=== PATIENT | male | born 1965 | race African-American/Black ===

== ENCOUNTER 2018-11-14 08:54 | Emergency (ER) | payer OTHER ==
[2018-11-14] MEDS ORDERED: Ondansetron ODT TAB* 4 MG PO ONE (09:23)
[2018-11-14 09:28] VITALS: BP 140/97
--- NOTE | 2018-11-14 10:47 | UC ---
General HPI - HPI Summary HPI Summary: Pt presents with c/o sudden onset of difficulty breathing, nausea, "tingling in head" and thoughts that he was "dying". Pt was driving at time and states that he pulled over and called 911. Ambulance at scene. Prior to ambulance arrival , pt vomited and instantly had relief from all symptoms. Pt states that he is experiencing significant distress in his personal life right now. Pt has work colleague present at time of exam. - History of Current Complaint Chief Complaint: UCGI Stated Complaint: NAUSEA Time Seen by Provider: 11/14/18 10:29 Hx Obtained From: Patient Onset/Duration: Sudden Onset, Lasting Minutes, Resolved Timing: Constant Onset Severity: Severe Current Severity: None Pain Intensity: 0 Associated Signs & Symptoms: Positive: Chest Pain, Dizziness, Vomiting - Allergy/Home Medications Allergies/Adverse Reactions: Allergies Allergy/AdvReac Type Severity Reaction Status Date / Time No Known Allergies Allergy Verified 11/14/18 09:14 Home Medications: Home Medications Atorvastatin* [Lipitor 10 MG*] 10 mg PO DAILY 11/14/18 [History Confirmed ] Bp Med, Name 1 tab PO DAILY 11/14/18 [History] PMH/Surg Hx/FS Hx/Imm Hx Previously Healthy: Yes Cardiovascular History: Cardiac Disease, Hypertension - Surgical History Surgical History: Yes Surgery Procedure, Year, and Place: RIGHT LOWER LEG FX REPAIR WITH HARDWEAR - Family History Known Family History: Positive: Cardiac Disease - Social History Occupation: Employed Full-time Alcohol Use: Occasionally Substance Use Type: None Smoking Status (MU): Former Smoker Type: Cigarettes Have You Smoked in the Last Year: No When Did the Patient Quit Smoking/Using Tobacco: 2012 Review of Systems All Other Systems Reviewed And Are Negative: Yes Constitutional: Positive: Negative Skin: Positive: Negative Eyes: Positive: Negative ENT: Positive: Negative Respiratory: Positive: Negative, Cough Cardiovascular: Positive: Chest Pain Gastrointestinal: Positive: Negative Genitourinary: Positive: Negative Motor: Positive: Negative Neurovascular: Positive: Negative Musculoskeletal: Positive: Negative Neurological: Positive: Weakness Psychological: Positive: Anxious Is Patient Immunocompromised?: No Physical Exam Triage Information Reviewed: Yes Appearance: Well-Appearing Vital Signs: Initial Vital Signs Temp 97.9 F 11/14/18 09:18 Pulse 96 11/14/18 09:18 Resp 18 11/14/18 09:18 BP 140/97 02/13/19 09:18 Pulse Ox 99 11/14/18 09:18 Vital Signs Reviewed: Yes Eye Exam: Normal ENT Exam: Normal Dental Exam: Normal Neck exam: Normal Respiratory Exam: Normal Cardiovascular Exam: Normal Musculoskeletal Exam: Normal Neurological Exam: Normal Psychological Exam: Normal Skin Exam: Normal Course/Dx - Differential Dx - Multi-Symptom Differential Diagnoses: Other - anxiety - Diagnoses Provider Diagnosis: Panic attack, Nausea & vomiting Discharge - Sign-Out/Discharge Documenting (check all that apply): Patient Departure All imaging exams completed and their final reports reviewed: No Studies - Discharge Plan Condition: Stable Disposition: HOME Prescriptions: LORazepam TAB(*) [Ativan 0.5 MG TAB (*)] 0.5 mg PO Q6H PRN #20 tab MDD 4 PRN Reason: Anxiety Ondansetron HCl [Zofran] 8 mg PO Q8H PRN #15 tablet PRN Reason: Nausea Patient Education Materials: Acute Nausea and Vomiting (ED), Anxiety (ED) [facility]errals: [facility] [Outside] - If Needed No Primary Care Phys,NOPCP [Primary Care Provider] - - Billing Disposition and Condition Condition: STABLE Disposition: Home
== END 2018-11-14 10:58 | disposition home or self-care (01) ==
LOC: UCCORT 08:54
DX: R11.2 Nausea with vomiting, unspecified (principal); F41.0 Panic disorder [episodic paroxysmal anxiety]; R42 Dizziness and giddiness; R07.9 Chest pain, unspecified; I10 Essential (primary) hypertension; Z87.891 Personal history of nicotine dependence
CPT/HCPCS: 99202; A9270-GY; G0463

== ENCOUNTER 2018-11-21 18:10 | Emergency (ER) | payer OTHER ==
--- NOTE | 2018-11-21 18:51 | ED ---
Psychiatric Complaint - HPI Summary HPI Summary: This pt is a 53 y/o male presenting to [facility] via police office on a 9.41 for a mental health evaluation. Pt was in the ED earlier brought in by coworker for auditory and visual hallucinations but was discharged by mental health with anxiety. Pt states today he heard his neighbors upstairs talking about killing him. He notes when he was 17 years old he saw his brother who was 16 years old get murdered and "this thought always crashes" his mind. The police came to check on the neighbors, but neighbors did not open the door. He notes the police told him they can't do anything unless it is a direct threat. Pt reports feeling very afraid now. Denies SI, HI, auditory or visual hallucinations. Pt works in at [employer]. PMHx: anxiety. He admits to socially using alcohol and street drugs. Pt is a former smoker. - History Of Current Complaint Chief Complaint: EDMentalHealth Time Seen by Provider: 11/21/18 18:19 Hx Obtained From: Patient Severity Currently: None Character: Fearful Aggravating Factor(s): Nothing Alleviating Factor(s): Nothing Associated Signs And Symptoms: Positive: Negative Related History: Positive For: Prior Psychiatric Issues Has Suicidal: Denies: Thoughts, With A Plan Has Homicidal: Denies: Thoughts, With A Plan Recent Stressor(s): overheard neighbors threatening to kill him - Allergies/Home Medications Allergies/Adverse Reactions: Allergies Allergy/AdvReac Type Severity Reaction Status Date / Time No Known Allergies Allergy Verified 11/14/18 09:14 PMH/Surg Hx/FS Hx/Imm Hx Cardiovascular History: Reports: Hx Hypertension Psychiatric History: Reports: Hx Anxiety - with panic attacks Denies: Hx Eating Disorder, Hx of Violent Episodes Against Others - Surgical History Surgery Procedure, Year, and Place: RIGHT LOWER LEG FX REPAIR WITH HARDWEAR Infectious Disease History: No Infectious Disease History: Denies: Traveled Outside the [place] in Last 30 Days - Family History Known Family History: Positive: Cardiac Disease - Social History Alcohol Use: Occasionally Hx Substance Use: Yes - socially Hx Tobacco Use: Yes Smoking Status (MU): Former Smoker Type: Cigarettes Have You Smoked in the Last Year: No Review of Systems Negative: Fever, Chills Cardiovascular: Negative Respiratory: Negative Gastrointestinal: Negative Psychological: Other - POS: afraid Negative: Other - NEG: SI, HI, auditory or visual hallucinations All Other Systems Reviewed And Are Negative: Yes Physical Exam - Summary Physical Exam Summary: Appearance: Well-appearing, Well-nourished, lying in bed comfortable Skin: Warm, dry, no obvious rash Eyes: sclera anicteric, no conjunctival pallor ENT: mucous membranes moist Neck: deferred Respiratory: No signs of respiratory distress Cardiovascular: Appears well perfused, pulses are nml Abdomen: deferred Musculoskeletal: Moving all 4 extremities without obvious discomfort Neurological: Awake and alert, mentation is normal, speech is fluent and appropriate Psychiatric: affect is normal, does not appear anxious or depressed Triage Information Reviewed: Yes Vital Signs On Initial Exam: Initial Vitals Temp Pulse Resp BP Pulse Ox 97.6 F 108 18 150/100 95 11/21/18 18:14 11/21/18 18:14 11/21/18 18:14 11/21/18 18:14 11/21/18 18:14 Vital Signs Reviewed: Yes Diagnostics - Vital Signs Vital Signs Temp Pulse Resp BP Pulse Ox 11/21/18 18:14 97.6 F 108 18 150/100 95 - Laboratory Result Diagrams: 11/22/18 06:32 11/22/18 06:32 Lab Statement: Any lab studies that have been ordered have been reviewed, and results considered in the medical decision making process. Re-Evaluation - Re-Evaluation First Eval Re-Evaluation Time: 18:51 Comment: Pt is medically cleared. Course/Dx - Course Assessment/Plan: Pt is a 53 y/o male who presents on a 9.41 for a mental health evaluation. Pt was in the ED earlier brought in by coworker for auditory and visual hallucinations but was discharged by mental health with dx anxiety. Pt states today he heard his neighbors upstairs talking about killing him. Pt was medically cleared. Pt is waiting for a mental health evaluation. He will be signed out to Dr. Mcnally at shift change pending MHE. - Differential Dx/Clinical Impression Provider Diagnosis: Psychotic disorder Discharge - Sign-Out/Discharge Documenting (check all that apply): Sign-Out Patient Signing out patient TO: Berenice Mcnally - pending MHE and dispo Patient Received Moderate/Deep Sedation with Procedure: No - Discharge Plan Condition: Stable Referrals: [facility] [Outside] [facility] [place] [facility] [Outside] - Billing Disposition and Condition Condition: STABLE - Attestation Statements Document Initiated by Julitaibandria: Yes Documenting Scribe: Marcie Cartagena Provider For Whom Bruce is Documenting (Include Credential): Neil Javed MD Scribe Attestation: IMarcie, scribed for Neil Javed MD on 11/22/18 at 1304. Scribe Documentation Reviewed: Yes Provider Attestation: The documentation as recorded by the Marcie craven accurately reflects the service I personally performed and the decisions made by me, Neil Javed MD Status of Scribe Document: Viewed
--- NOTE | 2018-11-21 22:48 | ED ---
Progress - Progress Note Progress Note: This patient was signed out to Dr. Mcnally from Dr. Javed at 22:00 11/21/18 pending evaluation. EKG at 23:46 shows NSR at 96 bpm, Normal axis. Normal interval. No ischemic changes. Per warehouse team member, Dr. Dickerson has decided that the patient will be transferred with a diagnosis of psychotic disorder. The patient is agreeable with this plan. Bloodwork obtained and is WNL. This patient will be signed out to Dr. Hickman upon shift change at 07:00 11/22/18 pending transfer. - EKG/XRAY/CT EKG: NSR Comments: NSR at 96 bpm,Normal axis. Normal interval. No ischemic changes - Consult/PCP Time Called: 18:10 Re-Evaluation - Re-Evaluation First Eval Re-Evaluation Time: 18:51 Comment: Pt is medically cleared. Course/Dx - Course Course Of Treatment: This patient was signed out to Dr. Mcnally from Dr. Javed at 22:00 11/21/18 pending evaluation. EKG at 23:46 shows NSR at 96 bpm, Normal axis. Normal interval. No ischemic changes. Per warehouse team member, Dr. Dickerson has decided that the patient will be transferred with a diagnosis of psychotic disorder. Bloodwork obtained and is WNL. The patient is agreeable with this plan. This patient will be signed out to Dr. Hickman upon shift change at 07:00 11/22/18 pending transfer. - Diagnoses Provider Diagnoses: Psychotic disorder - Provider Notifications Discussed Care Of Patient With: Yossi Dickerson Time Discussed With Above Provider: 22:47 Instructed by Provider To: Other - Per warehouse team member, Dr. Dickerson has decided that the patient will be transferred with a diagnosis of psychotic disorder. Discharge - Sign-Out/Discharge Documenting (check all that apply): Patient Departure - transfer, Sign-Out Patient, Receiving Sign-Out Signing out patient TO: Leny Hickman - pending transfer Receiving patient FROM: Neil Javed Patient Received Moderate/Deep Sedation with Procedure: No - Discharge Plan Condition: Stable Disposition: HOME Patient Education Materials: Fever in Adults (ED) Forms: *Work Release Referrals: [facility] [Outside] - 2 [facility] [Outside] - If Needed - Billing Disposition and Condition Condition: STABLE Disposition: Home - Attestation Statements Document Initiated by Scribe: Yes Documenting Scribe: Sachin Araiza Provider For Whom Scribe is Documenting (Include Credential): Berenice Mcnally MD Scribe Attestation: I, Sachin Araiza, scribed for Berenice Mcnally MD on 12/02/18 at 2011. Scribe Documentation Reviewed: Yes Provider Attestation: The documentation as recorded by the Sachin craven accurately reflects the service I personally performed and the decisions made by me, Berenice Mcnally MD Status of Scribe Document: Viewed
[2018-11-22 06:40] LABS: ABS Basophils 0 10^3/ul (0-0.2); ABS Eosinophils 0.2 10^3/ul (0-0.6); ABS Lymphocytes 0.6 10^3/ul (1.0-4.8); ABS Monocytes 0.5 10^3/ul (0-0.8); ABS Neutrophils 2.6 10^3/ul (1.5-7.7); ABS Nucleated RBC 0 10^3/ul; Hematocrit 43 % (42-52); Hemoglobin 14.3 g/dl (14.0-18.0); Lymphocyte % 14.6 %; Mean Corpuscular HGB Conc 34 g/dl (31-36); Mean Corpuscular Hemoglobin 28 pg (27-31); Mean Corpuscular Volume 83 fL (80-94); Mean Platelet Volume 8.7 fL (7.4-10.4); Nucleated Red Blood Cells % 0; Platelet Count 192 10^3/ul (150-450); Red Blood Count 5.13 10^6/ul (4.00-5.40); Red Cell Distribution Width 14 % (10.5-15); White Blood Count 3.8 10^3/ul (3.5-10.8)
[2018-11-22 06:56] LABS: ALT 30 U/L (7-52); AST 34 U/L (13-39); Albumin 4.2 g/dL (3.2-5.2); Albumin/Globulin Ratio 1.4 (1-3); Alkaline Phosphatase 81 U/L (34-104); Anion Gap 7 mmol/L (2-11); BUN/Creatinine Ratio 8.7 (8-20); Blood Urea Nitrogen 8 mg/dL (6-24); CO2 Carbon Dioxide 28 mmol/L (22-32); Calcium 9.6 mg/dL (8.6-10.3); Chloride 101 mmol/L (101-111); EGFR African American 103.7 (>60); EGFR Non-African American 85.7 (>60); Glucose 98 mg/dL (70-100); Potassium 3.2 mmol/L (3.5-5.0); Sodium 136 mmol/L (135-145); Total Protein 7.2 g/dL (6.4-8.9)
[2018-11-22 07:29] LABS: Acetaminophen < 15 mcg/mL; Alcohol < 10 mg/dL (<10); Salicylate < 2.50 mg/dL (<30)
[2018-11-22 07:43] LABS: TSH (Thyroid Stimulating Horm) 0.45 mcIU/mL (0.34-5.60)
[2018-11-22] MEDS ORDERED: amLODIPine TAB* 5 MG PO ONE (09:15)
[2018-11-22] MEDS ORDERED: Atorvastatin* 10 MG TAB PO ONE (09:15)
--- NOTE | 2018-11-22 09:20 | PN ---
ED Flex Patient Progress Note Date of Service: 11/21/18 Subjective: This is a 53 year-old M who is pending admission to [facility] / transfer to another psychiatric facility / discharge to home / or being observed secondary to hallucinations. Pt. examined around 0910. He speaking with counselors in hallway. Pt. reports he slept very well last night and states he is feeling great this morning and that he could go home. Objective: Vitals: Most recent vital signs documented below. General NAD, Alert and oriented x3. Laboratory: Current laboratory results documented below. Assessment: Hallucinations Plan: Pending psychiatric transfer to [place]. Morning medications ordered. Vital Signs Temp Pulse Resp BP Pulse Ox 97.6 F 108 18 150/100 95 11/21/18 18:14 11/21/18 18:14 11/21/18 18:14 11/21/18 18:14 11/21/18 18:14 Lab Results - Entire Visit 11/22/18 11/22/18 06:32 06:32 WBC 3.8 RBC 5.13 Hgb 14.3 Hct 43 MCV 83 MCH 28 MCHC 34 RDW 14 Plt Count 192 MPV 8.7 Neut % (Auto) 68.2 Lymph % (Auto) 14.6 [place] % (Auto) 12.7 Eos % (Auto) 4.0 Baso % (Auto) 0.5 Absolute Neuts (auto) 2.6 Absolute Lymphs (auto) 0.6 L Absolute Monos (auto) 0.5 Absolute Eos (auto) 0.2 Absolute Basos (auto) 0 Absolute Nucleated RBC 0 Nucleated RBC % 0 Sodium 136 Potassium 3.2 L Chloride 101 Carbon Dioxide 28 Anion Gap 7 BUN 8 Creatinine 0.92 Est GFR ( Amer) 103.7 Est GFR (Non-Af Amer) 85.7 BUN/Creatinine Ratio 8.7 Glucose 98 Calcium 9.6 Total Bilirubin 0.40 AST 34 ALT 30 Alkaline Phosphatase 81 Total Protein 7.2 Albumin 4.2 Globulin 3.0 Albumin/Globulin Ratio 1.4 TSH 0.45 Salicylates < 2.50 Acetaminophen < 15 Serum Alcohol < 10
--- NOTE | 2018-11-22 09:37 | PN ---
Progress Note - Progress Note Date of Service: 11/22/18914, Pt is a , awaiting transfer to [place] for unspecified psychosis. Note: Pt is resting in his bed when I enter his room. Rouses easily. Is oriented x 3. Denies physical complaints, no CP, SOB, PIERRE, dizziness, abd pain, N, V. Pt is hypertensive and tachycardic. I have Requested urine drug screen. Pt with hx substance abuse. Possible ETOH withdrawal to explain HTN and tachycardia. Has Lorazepam 0.5mg q 6h on his med list. Will give lorazepam in addition to his atorvastatin and amlodipine (usual meds). Pt did not get hydralazine last pm. Pt is entirely asymptomatic with the HTN and tachycardia. Is not agitated or tremulous. EKG reviewed. SR, no ischemia or acute changes noted. Will also give KCl 40 mEq for K+ 3.2. 11:41am Consult with Dr. Miller in person who provides additional context and history from yesterday. Pt was [place] [facility] [place], but friends were concerned about him, so pt returned. Pt denies SI/HI to Dr. Miller and myself. Perhaps his behavior which appeared to be psychosis was all drug induced. Awaiting urine drug screen. Lorazepam will not be given until urine for drug screen is produced. !6:16pm Pt is re-evaluated for temp 102 and tachycardia at 125. Lorazepam just being given now. Will also give acetaminophen for fever. Pt is awake and alert , lying on the bed in no distress. He has no cough, no sore throat, no rhinorrhea, no CP, SOB, no PIERRE, dizziness, no abd pain, no N,V, no tremulousness. Pt states he had his flu shot this year. Will do a flu swab on pt. 1800: Temp is 100.9 and pt continues to feel well. Pt's sister is coming to get him. Pt has an appt at the [place] [facility] [place] tomorrow. Pt requests a work release for 3 weeks. I advised pt I could not do this. I stated I could give him a work release to cover him for today and tomorrow, and that the [place] could extend it if indicated. Pt continues to have no infectious symptoms. Urine tox was positive for amphetamines, cocaine and cannabinoids. Tachycardia can be explained by substance abuse. Fever may also be due to substance abuse, especially because pt has no infectious symptoms, and does not appear toxic. 18:57: "Hadley", RN from [facility] makes me aware that pt's pulse is still 115, and pt remains asymptomatic. Pt is stable for discharge. Dx: Substance abuse. Hypokalemia Tachycardia Fever Hypertension in poor control. Disposition: Discharge Home with his sister Condition: stable.
[2018-11-22] MEDS ORDERED: LORazepam TAB(*) 1 MG PO ONE (10:33)
[2018-11-22] MEDS ORDERED: Potassium Chlor TAB* 20 MEQ TAB.ER PO ONE (10:45)
--- NOTE | 2018-11-22 11:55 | PN ---
ED Flex Patient Progress Note Date of Service: 11/22/18 Subjective: 53 y.o. single, homosexual, AA male with no prior psychiatric history returns to ED for second visit in one day due to complaints by friends that he has been acting unusually and hallucinating. The patient denies AH or VH and similarly denies thoughts of harming himself or others. Interestingly, his UDS was positive yesterday for cocaine, amphetamine and cannabis metabolites despite his insistence that he has not used any of these. He has been consistently tachycardic throughout his stay in the ED. Objective: middle aged AA male in blue scrubs; calm and cooperative; denies SI or HI; denies AH/VH; requesting discharge Assessment: Unspecified Psychosis; apparently resolved Plan: Patient does not appear a danger to himself or others. His presentation is very suspicious for substance misuse, although he denies this. Await redraw of UDS for confirmation. Will delay disposition until labs return. Vital Signs Temp Pulse Resp BP Pulse Ox 98.8 F 110 16 114/78 100 11/22/18 11:32 11/22/18 11:32 11/22/18 11:32 11/22/18 11:32 11/22/18 11:32 Lab Results - Entire Visit 11/22/18 11/22/18 06:32 06:32 WBC 3.8 RBC 5.13 Hgb 14.3 Hct 43 MCV 83 MCH 28 MCHC 34 RDW 14 Plt Count 192 MPV 8.7 Neut % (Auto) 68.2 Lymph % (Auto) 14.6 [place] % (Auto) 12.7 Eos % (Auto) 4.0 Baso % (Auto) 0.5 Absolute Neuts (auto) 2.6 Absolute Lymphs (auto) 0.6 L Absolute Monos (auto) 0.5 Absolute Eos (auto) 0.2 Absolute Basos (auto) 0 Absolute Nucleated RBC 0 Nucleated RBC % 0 Sodium 136 Potassium 3.2 L Chloride 101 Carbon Dioxide 28 Anion Gap 7 BUN 8 Creatinine 0.92 Est GFR ( Amer) 103.7 Est GFR (Non-Af Amer) 85.7 BUN/Creatinine Ratio 8.7 Glucose 98 Calcium 9.6 Total Bilirubin 0.40 AST 34 ALT 30 Alkaline Phosphatase 81 Total Protein 7.2 Albumin 4.2 Globulin 3.0 Albumin/Globulin Ratio 1.4 TSH 0.45 Salicylates < 2.50 Acetaminophen < 15 Serum Alcohol < 10
[2018-11-22 12:50] LABS: Urine Appearance Cloudy; Urine Bilirubin Negative (Negative); Urine Blood Negative (Negative); Urine Color Yellow; Urine Glucose Negative (Negative); Urine Ketones 1+ (Negative); Urine Nitrite Negative (Negative); Urine Protein Negative (Negative); Urine Specific Gravity 1.019 (1.010-1.030); Urine Urobilinogen Positive (Negative)
[2018-11-22 13:13] LABS: Barbiturates Urine Screen None Detected (None Detect); Benzodiazepine Urine Screen None Detected (None Detect); Urine Cannabinoids Screen Presumptive Positive (None Detect)
[2018-11-22] MEDS ORDERED: Acetaminophen TAB* 325 MG PO ONE (15:59)
[2018-11-22] MEDS ORDERED: LORazepam TAB(*) 0.5 MG PO ONE (16:00)
[2018-11-22 17:29] LABS: Influenza A Molecular NEGATIVE (Negative); Influenza B Molecular NEGATIVE (Negative)
[2018-11-22 18:46] VITALS: BP 120/72
== END 2018-11-22 18:40 | disposition home or self-care (01) ==
LOC: ED 18:10
DX: F29 Unspecified psychosis not due to a substance or known physiological condition (principal); E87.6 Hypokalemia; R00.0 Tachycardia, unspecified; F19.10 Other psychoactive substance abuse, uncomplicated; F41.0 Panic disorder [episodic paroxysmal anxiety]; Z87.891 Personal history of nicotine dependence
CPT/HCPCS: 36415; 80053; 80307; 80320; 80329; 81003; 84443; 85025; 93005; 99284; A9270-GY; G0480